=== PATIENT | male | born 1965 | race Two or more races ===

== ENCOUNTER 2023-04-05 15:39 | Emergency (ER) | payer MEDICAID, OTHER ==
[~2023-04-05] VITALS: Ht 185.4 cm; Wt 112.5 kg
[2023-04-05 16:00] VITALS: BP 189/108; PULSE 91; RESP 18; O2SAT 99
[2023-04-05] MEDS ORDERED: KETOROLAC TROMETH 60MG/2ML VIAL IM ONE (16:00)
[2023-04-05] MEDS ORDERED: CYCLOBENZAPRINE HCL 10 MG TAB PO ONE (16:00)
[2023-04-05] MEDS ORDERED: IBUPROFEN 800 MG TAB PO ONE (16:30)
[2023-04-05 18:12] VITALS: TEMP 98.5
[2023-04-05 19:13] LABS: Urine Bacteria NONE SEEN /hpf (None Seen); Urine Blood Negative /uL (Negative); Urine Clarity Clear (Clear); Urine Color Yellow (Yellow); Urine Protein, UAD TRACE (Negative); Urine Specific Gravity 1.017 (1.001-1.035); Urine Urobilinogen Normal (Negative); Urine WBC <1 /hpf (0 - 3)
[2023-04-05] MEDS ORDERED: CYCL-839 PO (19:26)
[2023-04-05] MEDS ORDERED: AMLO1TAB23 PO (19:26)
[2023-04-05] MEDS ORDERED: NAP500T PO (19:26)
[2023-04-05] MEDS ORDERED: amLODIPine BESYLATE 5 MG TAB PO ONE (19:30)
== END 2023-04-05 20:12 | disposition home or self-care (01) ==
LOC: ER 15:39
DX: S39.012A Strain of muscle, fascia and tendon of lower back, initial encounter (principal); I16.0 Hypertensive urgency; F17.210 Nicotine dependence, cigarettes, uncomplicated; Z88.0 Allergy status to penicillin; X58.XXXA Exposure to other specified factors, initial encounter; Y93.89 Activity, other specified; Y92.89 Other specified places as the place of occurrence of the external cause; Y99.8 Other external cause status
CPT/HCPCS: 72100; 81001; 99284; J1885